=== PATIENT | male | born 1995 | race Caucasian/White ===

== ENCOUNTER 2020-02-27 20:34 | Emergency (ER) | payer SELFPAY ==
[~2020-02-27] VITALS: Ht 180.3 cm; Wt 54.3 kg
--- NOTE | 2020-02-27 20:36 | PHYS DOC ---
General Adult HPI: HPI: "..I was building a [employer] 1[employer]..and I hit my Lt. index finger with a hammer.. this was about noon. .. but it still hurting.. and it got that pocked of blood under the nail.. it not better .." Patient is a 25 year old male who presents with above hx and complaints of Lt. 2 nd index finger injury at noon today. Pt. has hematoma under the nail. Does have range of motion with pain. Pt. states he does not remember his last tetanus. Pt. does chew his nails. Hx. allergy to PCN and Tramadol. Injury was cleaned at time of injury and treated by a nurse. Pt.stated injury occurred approximately noon today. Patient presents because of continued pain and need to update his tetanus. No history immunosuppression. No history of serious severe ill contacts. No history of travel recently outside can see the area. Patient is right-hand dominant. Patient has a's very swollen Lt. distal index finger tip. Review of Systems: Review of Systems: Constitutional: Denies fever or chills Eyes: Denies change in visual acuity HENT: Denies nasal congestion or sore throat Respiratory: Denies cough or shortness of breath Cardiovascular: Denies chest pain or edema GI: Denies abdominal pain, nausea, vomiting, bloody stools or diarrhea : Denies dysuria Musculoskeletal: Denies back pain or joint pain Integument: Denies rash Neurologic: Denies headache, focal weakness or sensory changes Endocrine: Denies polyuria or polydipsia Lymphatic: Denies swollen glands Psychiatric: Denies depression or anxiety Heart Score: Risk Factors: Risk Factors: DM, Current or recent (<one month) smoker, HTN, HLP, family history of CAD, obesity. Risk Scores: Score 0 - 3: 2.5% MACE over next 6 weeks - Discharge Home Score 4 - 6: 20.3% MACE over next 6 weeks - Admit for Clinical Observation Score 7 - 10: 72.7% MACE over next 6 weeks - Early Invasive Strategies Family History: Family History: Noncontributory Current Medications: Current Meds: See nursing for home meds Allergies: Allergies: Allergic to penicillin tramadol Physical Exam: PE: Constitutional: in acute distress, non-toxic appearance. [] HENT: Normocephalic, atraumatic, bilateral external ears normal, oropharynx mo ist, no oral exudates, nose normal. [] Eyes: PERRLA, EOMI, conjunctiva normal, no discharge. Glasses Neck: Normal range of motion, no tenderness, supple, no stridor. [] Cardiovascular:Heart rate regular rhythm, no murmur [] Lungs & Thorax: Bilateral breath sounds equal scattered wheezes on auscu ltation [] Abdomen: Bowel sounds normal, soft, no tenderness, no masses, no pulsatile masses. [] Skin: Warm, dry, no erythema, no rash. [] Back: No tenderness, no CVA tenderness. [] Extremities: No tenderness, no cyanosis, no clubbing, ROM intact, no edema. [] Except findings and left index or second finger as per HPI Neurologic: Alert and oriented X 3, normal motor function, normal sensory function, no focal deficits noted. [] Psychologic: Affect anxious, judgement normal, mood normal. [] EKG: EKG: [] Radiology/Procedures: Radiology/Procedures: My interpretation x-ray shows a fractured fingertip - Tuft fx. 2nd diget[] Course & Med Decision Making: Course & Med Decision Making Pertinent Labs and Imaging studies reviewed. (See chart for details) Wound care: Tip finger cleaned with Betadine. Nail hematoma drained with Bovie- Cautery. Recleaned with Betadine. Dressing with Bactracin. Jonathan tapped. Bactrim DS started. Pt. elevate hand . Keep crush injury clean and dry. Follow up with primary. Tylenol and Ibuprofen for pain. Impression: 1. Crush Injury Lt. index- Tuff injury- fracture. 2. Nail Hematoma [] Dragon Disclaimer: Dragon Disclaimer: This electronic medical record was generated, in whole or in part, using a voice recognition dictation system. Departure Departure: Disposition: 01 HOME/RESIDENCE PRIOR TO ADM Condition: STABLE Referrals: PCP,NO (PCP) Scripts Sulfamethoxazole/Trimethoprim (BACTRIM DS TABLET) 1 Each Tablet 1 TAB PO BID for crush injury index finger lt. for 7 Days, #14 TAB 0 Refills Prov: GUMARO CARLOS MD 02/27/20 Justification of Admission: Justification of Admission: Justification of Admission Dx: N/A Dragon Disclaimer This chart was dictated in whole or in part using Voice Recognition software in a busy, high-work load, and often noisy Emergency Department environment. It may contain unintended and wholly unrecognized errors or omissions. Dragon Disclaimer This chart was dictated in whole or in part using Voice Recognition software in a busy, high-work load, and often noisy Emergency Department environment. It may contain unintended and wholly unrecognized errors or omissions. GUMARO CARLOS MD Feb 27, 2020 20:36
[2020-02-27] MEDS ORDERED: ALBU2.5V8 INH (20:55)
[2020-02-27] MEDS ORDERED: HYDROcodon/IBUPROFEN 7.5/200MG 1 TAB TABLET PO ONE ×2 (21:00→21:30)
[2020-02-27] MEDS ORDERED: TETANUS AND DIPHTHERIA TOX/PF 0.5 ML VIAL. VAX IM ONE (21:00)
--- NOTE | 2020-02-27 21:15 | RAD ---
Exam: Left hand 3 views INDICATION: Trauma to finger TECHNIQUE: Frontal, lateral and oblique views of the left hand Comparisons: None FINDINGS: There is a mildly comminuted fracture involving the tuft of the second digit. Surrounding soft tissue swelling is noted. No other fractures are identified. Joint spaces are well-maintained. Bone mineralization is normal. IMPRESSION: Comminuted fracture involving the tuft of the second digit. Electronically signed by: Nabor Munoz MD (02/27/2020 9:12 PM) [id number]
[2020-02-27] MEDS ORDERED: MUPIROCIN 2% TOPICAL OINTMENT 22GM TUBE. TP ONE ×2 (21:22→21:30)
[2020-02-27] MEDS ORDERED: SULF1TAB24 PO (21:26)
[2020-02-27] MEDS ORDERED: DIPH,PERTUSS(ACELL),TET VAC/PF 0.5 ML SYRINGE. VAX IM ONE (21:30)
[2020-02-27] MEDS ORDERED: SMZ/TMP 800/160MG TABLET. PO ONE (21:30)
[2020-02-27 21:40] VITALS: BP 110/51
== END 2020-02-27 21:45 | disposition home or self-care (01) ==
LOC: ER 20:34
DX: S62.601A Fracture of unspecified phalanx of left index finger, initial encounter for closed fracture (principal); S60.122A Contusion of left index finger with damage to nail, initial encounter; Z88.0 Allergy status to penicillin; W23.0XXA Caught, crushed, jammed, or pinched between moving objects, initial encounter; Y93.89 Activity, other specified; Y92.89 Other specified places as the place of occurrence of the external cause; Y99.8 Other external cause status
CPT/HCPCS: 11740; 73130; 90471; 90715; 99283; 99284

== ENCOUNTER 2020-06-15 21:26 | Emergency (ER) | payer SELFPAY ==
[~2020-06-15] VITALS: Ht 180.3 cm; Wt 65.0 kg
[~2020-06-15 21:26] MED LIST: ALBU2.5V8 INH; SULF1TAB24 PO
[2020-06-15 21:40] VITALS: BP 124/77
[2020-06-15] MEDS ORDERED: TETRACAINE 0.5% OPHTH SOLUTION 4ML BOTTLE. OS ONE (22:30)
[2020-06-15] MEDS ORDERED: FLUORESCEIN 1MG EYE STRIP. OS ONE (22:30)
--- NOTE | 2020-06-15 22:58 | PHYS DOC ---
Past History Past Medical History: Asthma Past Surgical History: No Surgical History Alcohol Use: None General Adult EDM: Chief Complaint: EYE PROBLEMS HPI: HPI: 25-year-old male presents with left eye irritation. Patient was working with wood earlier today about 8 hours ago. He thought he got some sawdust in his eye. He is continued have irritation throughout the day. He is concerned there is still something in his eye. The pain is worse in the upper part of the eye. Patient has no other complaints at this time. Review of Systems: Review of Systems: Constitutional: Denies fever or chills Eyes: Possible foreign body left eye HENT: Denies nasal congestion or sore throat Respiratory: Denies cough or shortness of breath Cardiovascular: Denies chest pain or edema GI: Denies abdominal pain, nausea, vomiting, bloody stools or diarrhea : Denies dysuria Musculoskeletal: Denies back pain or joint pain Integument: Denies rash Neurologic: Denies headache, focal weakness or sensory changes Endocrine: Denies polyuria or polydipsia Lymphatic: Denies swollen glands Psychiatric: Denies depression or anxiety Heart Score: Risk Factors: Risk Factors: DM, Current or recent (<one month) smoker, HTN, HLP, family history of CAD, obesity. Risk Scores: Score 0 - 3: 2.5% MACE over next 6 weeks - Discharge Home Score 4 - 6: 20.3% MACE over next 6 weeks - Admit for Clinical Observation Score 7 - 10: 72.7% MACE over next 6 weeks - Early Invasive Strategies Current Medications: Current Meds: Current Medications Medications (Trade) Dose Ordered Sig/Flori Start Time Stop Time Status Last Admin Dose Admin Erythromycin (Romycin) 0.25 inch 1X ONCE 06/15/20 23:00 06/15/20 23:01 UNV Fluorescein Sodium (Ful-Ashanti 1mg) 1 strip 1X ONCE 06/15/20 22:30 06/15/20 22:31 DC 06/15/20 22:37 1 STRIP Tetracaine HCl (Tetracaine) 1 drop 1X ONCE 06/15/20 22:30 06/15/20 22:31 DC 06/15/20 22:37 1 DROP Allergies: Allergies: Allergies Coded Allergies Type Severity Reaction Last Updated Verified Penicillins Allergy Intermediate Hives 02/27/20 Yes tramadol Adverse Reaction Unknown Nausea and Vomiting 6/13/20 Yes Physical Exam: PE: Constitutional: Well developed, well nourished, no acute distress, non-toxic appearance. [] HENT: Normocephalic, atraumatic, bilateral external ears normal, oropharynx moist, no oral exudates, nose normal. [] Eyes: PERRLA, EOMI, conjunctiva erythematous in the left eye, no discharge. Fluorescein exam showed mild abrasion of the lateral sclera. Small foreign body upper eyelid [] Neck: Normal range of motion, no tenderness, supple, no stridor. [] Cardiovascular:Heart rate regular rhythm, no murmur [] Lungs & Thorax: Bilateral breath sounds clear to auscultation [] Abdomen: Bowel sounds normal, soft, no tenderness, no masses, no pulsatile masses. [] Skin: Warm, dry, no erythema, no rash. [] Back: No tenderness, no CVA tenderness. [] Extremities: No tenderness, no cyanosis, no clubbing, ROM intact, no edema. [] Neurologic: Alert and oriented X 3, normal motor function, normal sensory function, no focal deficits noted. [] Psychologic: Affect normal, judgement normal, mood normal. [] Current Patient Data: Vital Signs: Vital Signs Date Time Temp Pulse Resp B/P (MAP) Pulse Ox O2 Delivery O2 Flow Rate FiO2 06/15/20 21:40 97.6 72 18 124/77 (93) 100 Room Air EKG: EKG: [] Radiology/Procedures: Radiology/Procedures: [] Course & Med Decision Making: Course & Med Decision Making Pertinent Labs and Imaging studies reviewed. (See chart for details) I removed a small foreign body from the patient's upper eyelid. I also put him on erythromycin ointment. He is stable for discharge at this time. [] Dragon Disclaimer: Dragon Disclaimer: This electronic medical record was generated, in whole or in part, using a voice recognition dictation system. Foreign Body Removal Procedure Indication: [INDICATION:] Foreign body left upper eyelid Procedure: The area of the foreign body was the left upper eyelid. Tetracaine eyedrops were used for anesthesia. I everted the lid with a sterile Q-tip. I found a small area of uptake from fluorescein and rubbed it with a Q-tip. A small foreign body was removed. The patient tolerated the procedure well.. Complications: None. Departure Departure: Impression: Primary Impression: Foreign body of left eye Qualified Codes: T15.92XA - Foreign body on external eye, part unspecified, left eye, initial encounter Disposition: HOME/RESIDENCE PRIOR TO ADM Condition: STABLE Referrals: PCP,NO (PCP) Patient Instructions: Eye - Corneal Abrasion, [id number] JANKI VICTORIA DO Jun 15, 2020 22:58
[2020-06-15] MEDS ORDERED: ERYTHROMYCIN 0.5% OPHTH OINTMENT 1GM TUBE. OS ONE (23:00)
[2020-06-15] MEDS ORDERED: ERYT1OIN6 OP (23:19)
== END 2020-06-15 23:37 | disposition home or self-care (01) ==
LOC: ER 21:26
DX: T15.12XA Foreign body in conjunctival sac, left eye, initial encounter (principal); J45.909 Unspecified asthma, uncomplicated; Z88.0 Allergy status to penicillin; Z88.6 Allergy status to analgesic agent; X58.XXXA Exposure to other specified factors, initial encounter; Y93.89 Activity, other specified; Y92.89 Other specified places as the place of occurrence of the external cause; Y99.8 Other external cause status
CPT/HCPCS: 65205; 99284

== ENCOUNTER 2020-08-02 13:32 | Emergency (ER) | payer SELFPAY ==
[~2020-08-02] VITALS: Ht 180.3 cm; Wt 65.0 kg
[~2020-08-02 13:32] MED LIST changes: +ERYT1OIN6 OP
[2020-08-02 13:43] VITALS: BP 111/66
--- NOTE | 2020-08-02 14:01 | PHYS DOC ---
Past History Past Medical History: Asthma (STEPHANIE BERMUDEZ APRN) Past Surgical History: No Surgical History (STEPHANIE BERMUDEZ APRN) Alcohol Use: None (STEPHANIE BERMUDEZ APRN) Adult General Chief Complaint Chief Complaint: DENTAL PROBLEM HPI HPI Patient is a 25 year old male who presents with left lower rear molar dental pain since last Saturday. Patient states that most all of his teeth are bad. Patient states the last time he seen the dentist was about a year ago and had a tooth filled. Patient states he does not currently have a dentist that he can see. Patient states that the tooth that is hurting him today is broken in half and has been broken for several years. Patient states he took 800 mg of Motrin this morning at approximately 9 AM for a 10/10 pain on a 1-10 pain scale which did not help, patient states he also took a 500 mg amoxicillin that his mother gave him this morning at approximately 9 AM. Patient denies any facial swell ing, sore throat, or problems swallowing. Patient denies any fever or chills, visual changes, nasal congestion, cough, shortness of breath, chest pain, or swelling of his extremities. Patient denies any abdominal pains, nausea, vomiting, diarrhea, or constipation. Patient denies any problems urinating, denies back pain or pain in his joints. Patient denies any skin rashes. Pat ient denies any headaches, focal weaknesses or sensory changes. Patient denies any swelling of his glands. Patient denies any recent history of depression or anxieties, denies homicidal or suicidal ideation. (STEPHANIE BERMUDEZ APRN) Review of Systems Review of Systems Constitutional: Denies fever or chills Eyes: Denies change in visual acuity, redness, or eye pain HENT: Denies nasal congestion or sore throat, patient complains of left lower rear molar pain since last Saturday Respiratory: Denies cough or shortness of breath Cardiovascular: Patient denies any chest pains GI: Denies abdominal pain, nausea, vomiting, bloody stools or diarrhea : Denies dysuria or hematuria Musculoskeletal: Denies back pain or joint pain Integument: Denies rash or skin lesions Neurologic: Denies headache, focal weakness or sensory changes Psychiatric: Patient denies homicidal or suicidal ideation, patient denies depressions or anxieties. All other systems were reviewed and found to be within normal limits, except as documented in this note. (STEPHANIE BERMUDEZ APRN) Current Medications Current Medications Patient states he is not on any prescription medications. (STEPHANIE BERMUDEZ APRN) Allergies Allergies Patient states he has a allergy to penicillin which gives him hives however he states he took a amoxicillin that his mother gave him this morning approximately 9 AM, patient states he has taken amoxicillin in the past and has had no problems. Allergies Coded Allergies Type Severity Reaction Last Updated Verified Penicillins Allergy Intermediate Hives 02/27/20 Yes tramadol Adverse Reaction Unknown Nausea and Vomiting 02/27/20 Yes (STEPHANIE BERMUDEZ APRN) Physical Exam Physical Exam Constitutional: Well developed, well nourished, no acute distress, non-toxic appearance. HENT: Normocephalic, atraumatic, bilateral external ears normal, oropharynx moist, no oral exudates, nose normal. Patient has poor dentition, multiple broken teeth with dental caries, patient's complained lower molar left rear tooth is broken, adjacent gum is reddened with minor swelling, no purulent drainage noted, no facial swelling. Eyes: PERRLA, EOMI, conjunctiva normal, no discharge. Neck: Normal range of motion, no tenderness, supple, no stridor. Cardiovascular:Heart rate regular rhythm, no murmur Lungs & Thorax: Bilateral breath sounds clear to auscultation Abdomen: Bowel sounds normal, soft, no tenderness, no masses, no pulsatile masses. Skin: Warm, dry, no erythema, no rash. Back: No tenderness, no CVA tenderness. Extremities: No tenderness, no cyanosis, no clubbing, ROM intact, no edema. Neurologic: Alert and oriented X 3, normal motor function, normal sensory function, no focal deficits noted. Psychologic: Affect normal, judgement normal, mood normal. (STEPHANIE BERMUDEZ APRN) Current Patient Data Vital Signs Vital Signs Date Time Temp Pulse Resp B/P (MAP) Pulse Ox O2 Delivery O2 Flow Rate FiO2 08/02/20 13:43 98.0 87 16 111/66 (81) 98 Room Air (STEPHANIE BERMUDEZ APRN) EKG EKG [] (STEPHANIE BERMUDEZ APRN) Radiology/Procedures Radiology/Procedures [] (STEPHANIE BERMUDEZ APRN) Heart Score Risk Factors: Risk Factors: DM, Current or recent (<one month) smoker, HTN, HLP, family history of CAD, obesity. Risk Scores: Risk Factors: DM, Current or recent (<one month) smoker, HTN, HLP, family history of CAD, obesity. (STEPHANIE BERMUDEZ APRN) Course & Med Decision Making Course & Med Decision Making Pertinent Labs and Imaging studies reviewed. (See chart for details) 25-year-old male presents emergency department with complaints of dental pain, specifically left lower rear molar pain since last Saturday. Upon examination patient has very poor dentition with multiple broken teeth and marked dental caries, the patient's lower left molar tooth #2 is broken, erythematous, with minor swelling, no purulent drainage. Diagnosis of pulpitis versus dental abscess, will start on clindamycin 450 mg 3 times daily related to patient's allergy to penicillins, will start 600 mg Motrin, a dose of 450 mg clindamycin p .o. and 60 mg Toradol IM will be given in the emergency department, will give prescription for both. Patient will be given a list of dental clinics, discussed strict follow-up with dentist soon, patient gave verbal understanding of following up with a dentist soon, home prescription medications, return to ER concerns, patient had no further questions or concerns, patient discharged home without incident. (STEPHANIE BERMUDEZ APRN) Course & Med Decision Making I have participated in the care of this patient and I have reviewed and agree with all pertinent clinical information above including history, exam, and recommendations. (FORREST ENNIS MD) Dragon Disclaimer Dragon Disclaimer This electronic medical record was generated, in whole or in part, using a voice recognition dictation system. (STEPHANIE BERMUDEZ APRN) Departure Departure: Impression: Primary Impression: Tooth pulpitis Additional Impressions: Dental caries into pulp Dental abscess Disposition: DC HOME SELF CARE/HOMELESS Condition: STABLE Referrals: PCP,NO (PCP) Patient Instructions: Dental Abscess, Dental Caries Additional Instructions: Take prescribed medications as directed, follow-up with a dentist soon, you have been given a list of dental clinics, return to the emergency department for worsening symptoms, or other concerns. Scripts Ibuprofen (Ibu) 600 Mg Tablet 1 TAB PO Q6-8HRS for DENTAL PAIN for 6 Days, #24 TAB 0 Refills Prov: STEPHANIE BERMUDEZ APRN 08/02/20 Clindamycin Hcl (CLINDAMYCIN HCL) 150 Mg Capsule 450 MG PO TID for DENTAL ABCESS for 7 Days, #63 CAP 0 Refills TAKE 3 TABLES THREE TIMES PER DAY FOR 7 DAYS Prov: STEPHANIE BERMUDEZ APRN 08/02/20 Problem Qualifiers STEPHANIE BERMUDEZ APRN Aug 02, 2020 14:01 FORREST ENNIS MD Aug 02, 2020 17:01
[2020-08-02] MEDS ORDERED: CLINDAMYCIN HCL 150 MG CAPSULE PO ONE (14:45)
[2020-08-02] MEDS ORDERED: KETOROLAC 60 MG/2 ML VIAL. IM ONE (14:45)
[2020-08-02] MEDS ORDERED: IBUP-571 PO (15:17)
[2020-08-02] MEDS ORDERED: CLIN150C14 PO (15:17)
== END 2020-08-02 15:21 | disposition home or self-care (01) ==
LOC: ER 13:32
DX: S02.5XXA Fracture of tooth (traumatic), initial encounter for closed fracture (principal); K02.9 Dental caries, unspecified; K04.01 Reversible pulpitis; K04.7 Periapical abscess without sinus; J45.909 Unspecified asthma, uncomplicated; Z88.0 Allergy status to penicillin; Z88.6 Allergy status to analgesic agent; X58.XXXA Exposure to other specified factors, initial encounter; Y93.89 Activity, other specified; Y92.89 Other specified places as the place of occurrence of the external cause; Y99.8 Other external cause status
CPT/HCPCS: 96372; 99283; J1885

== ENCOUNTER → 2021-01-24 | Emergency (ER) | payer OTHER ==
[~2021-01-24] VITALS: Ht 180.3 cm; Wt 65.0 kg
[~2021-01-24] MED LIST changes: +CLIN150C15 PO; +HYDROcodone/APAP 5/325MG 1 TAB TABLET PO ONE; +IBUP-571 PO
[2021-01-24 17:04] VITALS: BP 134/66
--- NOTE | 2021-01-24 17:53 | RAD ---
EXAM: Left foot, 3 views; left ankle, 3 views. HISTORY: Pain. COMPARISON: None. FINDINGS: 3 views of the left foot and ankle are obtained. There is no acute fracture, dislocation or subluxation. There is a corticated ossicle anterior to the proximal aspect of the navicular bone, ch ronic in appearance. The ankle mortise is intact. There is no osteochondral lesion. IMPRESSION: 1. No acute osseous finding. 2. Small chronic appearing ossicle adjacent to the anterior aspect of the navicular bone. The imaging appearance does not favor an acute avulsion fracture fragment. Electronically signed by: Ling Gilbert MD (01/24/2021 5:50 PM) [facility]
--- NOTE | 2021-01-24 17:53 | RAD ---
EXAM: Left foot, 3 views; left ankle, 3 views. HISTORY: Pain. COMPARISON: None. FINDINGS: 3 views of the left foot and ankle are obtained. There is no acute fracture, dislocation or subluxation. There is a corticated ossicle anterior to the proximal aspect of the navicular bone, ch ronic in appearance. The ankle mortise is intact. There is no osteochondral lesion. IMPRESSION: 1. No acute osseous finding. 2. Small chronic appearing ossicle adjacent to the anterior aspect of the navicular bone. The imaging appearance does not favor an acute avulsion fracture fragment. Electronically signed by: Ling Gilbert MD (01/24/2021 5:50 PM) [facility]
--- NOTE | 2021-01-24 18:07 | PHYS DOC ---
Past History Past Medical History: Asthma Past Surgical History: No Surgical History Alcohol Use: None General Adult EDM: Chief Complaint: FOOT INJURY PAIN HPI: HPI: Patient is a 25-year-old male presents with left foot pain after a box fell on his foot at work. Patient took 1 hydrocodone before arrival. Patient has full range of motion and able to bear weight. Pedal pulses intact. Patient denies medical history. Review of Systems: Review of Systems: Constitutional: Denies fever or chills Eyes: Denies change in visual acuity HENT: Denies nasal congestion or sore throat Respiratory: Denies cough or shortness of breath Cardiovascular: Denies chest pain or edema Musculoskeletal: Left foot pain Integument: Swelling to left foot Current Medications: Current Meds: Current Medications Medications (Trade) Dose Ordered Sig/Flori Start Time Stop Time Status Last Admin Dose Admin Acetaminophen/ Hydrocodone Bitart (Lortab 5/325) 1 tab 1X ONCE 01/24/21 17:15 01/24/21 17:19 DC 01/24/21 17:33 1 TAB Allergies: Allergies: Allergies Coded Allergies Type Severity Reaction Last Updated Verified Penicillins Allergy Intermediate Hives 02/27/20 Yes tramadol Adverse Reaction Unknown Nausea and Vomiting 02/27/20 Yes Physical Exam: PE: Constitutional: Well developed, well nourished, no acute distress, non-toxic appearance. [] HENT: Normocephalic, atraumatic, bilateral external ears normal, oropharynx moist, no oral exudates, nose normal. [] Eyes: PERRLA, EOMI, conjunctiva normal, no discharge. [] Neck: Normal range of motion, no tenderness, supple, no stridor. [] Cardiovascular:Heart rate regular rhythm, no murmur [] Lungs & Thorax: Bilateral breath sounds clear to auscultation [] Skin: Warm, dry, no erythema, no rash. [] Back: No tenderness, no CVA tenderness. [] Extremities: Left foot tenderness, ROM intact, edema Current Patient Data: Vital Signs: Vital Signs Date Time Temp Pulse Resp B/P (MAP) Pulse Ox O2 Delivery O2 Flow Rate FiO2 01/24/21 17:33 16 98 01/24/21 17:04 98.3 83 134/66 (88) Room Air EKG: EKG: [] Radiology/Procedures: Radiology/Procedures: []EXAM: Left foot, 3 views; left ankle, 3 views. HISTORY: Pain. COMPARISON: None. FINDINGS: 3 views of the left foot and ankle are obtained. There is no acute fracture, dislocation or subluxation. There is a corticated ossicle anterior to the proximal aspect of the navicular bone, chronic in appearance. The ankle mortise is intact. There is no osteochondral lesion. IMPRESSION: 1. No acute osseous finding. 2. Small chronic appearing ossicle adjacent to the anterior aspect of the navicular bone. The imaging appearance does not favor an acute avulsion fracture fragment. Electronically signed by: Ling Gilbert MD (01/24/2021 5:50 PM) [facility] Heart Score: C/O Chest Pain: No Risk Factors: Risk Factors: DM, Current or recent (<one month) smoker, HTN, HLP, family history of CAD, obesity. Risk Scores: Score 0 - 3: 2.5% MACE over next 6 weeks - Discharge Home Score 4 - 6: 20.3% MACE over next 6 weeks - Admit for Clinical Observation Score 7 - 10: 72.7% MACE over next 6 weeks - Early Invasive Strategies Course & Med Decision Making: Course & Med Decision Making Pertinent Labs and Imaging studies reviewed. (See chart for details) [] Patient is being seen after a box fell onto his left foot at work. Patient states he took a hydrocodone of his mother's prior to arrival. Patient is tearful. Patient has full range of motion is able to ambulate. Left foot x-ray is negative for fracture. Rice instructions given. Ibuprofen and Tylenol at home for discomfort. Follow-up with PCP if pain continues for further management. Cat Disclaimer: Cat Disclaimer: This electronic medical record was generated, in whole or in part, using a voice recognition dictation system. Departure Departure: Impression: Primary Impression: Foot pain Qualified Codes: M79.672 - Pain in left foot Disposition: 01 HOME / SELF CARE / HOMELESS Condition: STABLE Referrals: PCP,NO (PCP) Patient Instructions: Foot Contusion Additional Instructions: You are seen in the emergency room for left foot pain after a box fell on your foot. X-ray of your left foot was negative for fracture. You were given hydrocodone in the emergency room for discomfort. Please use rice, ice, elevate. Follow-up with your PCP if you continue to have pain for further management. Can also take ibuprofen and Tylenol at home. EMERGENCY DEPARTMENT GENERAL DISCHARGE INSTRUCTIONS Thank you for coming to [facility] (ED) today and trusting us with you care. We trust that you had a positivie experience in our Emergency Department. If you wish to speak to the department management, you may call the director at [phone]. YOUR FOLLOW UP INSTRUCTIONS ARE FOLLOWS: 1. Do you have a private Doctor? If you do not have a private doctor, please ask for a resource list of physicians or clinics that may be able to assist you with follow up care. 2. The Emergency Physician has interpreted your x-rays. The X-Ray specialist will also review them. If there is a change in the findings, you will be notified in 48 hours when at all possible. 3. A lab test or culture has been done, your results will be reviewed and you will be notified if you need a change in treatment. ADDITIONAL INSTRUCTIONS AND INFORMATION: 1. Your care today has been supervised by a physician who is specially trained in emergency care. Many problems require more than one evaluation for a complete diagnosis and treatment. We recommend that you schedule your follow up appointment as recommended to ensure complete treatment of you illness or injury. If you are unable to obtain follow up care and continue to have a problem, or if your condition worsens, we recommend that you return to the ED. 2. We are not able to safely determine your condition over the phone nor are we able to give sound medical advice over the phone. For these safety reasons, if you call for medical advice we will ask you to come to the ED for further evaluation. 3. If you have any questions regarding these discharge instructions please call the ED at [phone]. SAFETY INFORMATION: In the interest of safety, wellness, and injury prevention; we encourage you to wear your sealbelt, if you smoke; quite smoking, and we encourage family to use a protective helmet for bicycling and other sporting events that present an increased risk for head injury. IF YOUR SYMPTOMS WORSEN OR NEW SYMPTOMS DEVELOP, OR YOU HAVE CONCERNS ABOUT YOUR CONDITION; OR IF YOUR CONDITION WORSENS WHILE YOU ARE WAITING FOR YOUR FOLLOW UP APPOINTMENT; EITHER CONTACT YOUR PRIMARY CARE DOCTOR, THE PHYSICIAN WHOSE NAME AND NUMBER YOU WERE GIVEN, OR RETURN TO THE ED IMMEDIATELY. MESSI NAVA APRN January 24, 2021 18:07
== END | disposition home or self-care (01) ==
LOC: ER 16:57
DX: M79.672 Pain in left foot (principal); R22.42 Localized swelling, mass and lump, left lower limb; J45.909 Unspecified asthma, uncomplicated; Z88.0 Allergy status to penicillin; Z88.6 Allergy status to analgesic agent; W20.8XXA Other cause of strike by thrown, projected or falling object, initial encounter; Y93.89 Activity, other specified; Y92.89 Other specified places as the place of occurrence of the external cause; Y99.8 Other external cause status
CPT/HCPCS: 73610; 73630; 99284